=== PATIENT | female | born 1980 | race Caucasian/White ===

== ENCOUNTER 2018-08-01 05:51 | Day surgery (SDC) | payer OTHER ==
[~2018-08-01] VITALS: Ht 167.6 cm; Wt 96.0 kg
[2018-08-01] VITALS (11 sets, daily range): BP systolic 115–145; BP diastolic 74–97; PULSE 88–104; RESP 16–21; Ht 167.6 cm; Wt 96.0 kg
[2018-08-01] MEDS ORDERED: LACTATED RINGER'S 1,000 ML IV SCH (07:00)
[2018-08-01] MEDS ORDERED: BACITRACIN/POLYMYXIN 28.35 GM OINT TOP ONE (07:10)
[2018-08-01] MEDS ORDERED: POLYMYXIN/BACITRACIN 1L IRRIG ONE (07:10)
[2018-08-01] MEDS ORDERED: BUPIVACAINE 0.5% (SDV) 30 ML INJ ONE (07:10)
--- NOTE | 2018-08-01 07:10 | PREAC ---
Date/Time of Note Date/Time of Note DATE: 08/01/18 TIME: 07:09 Anesthesia Eval and Record Evaluation Time Pre-Procedure Interview DATE: 08/01/18 TIME: 07:09 Age 37 Sex female NPO: 8 hrs Preoperative diagnosis Right leg gastrocnemius tightness and metataralgia Planned procedure Right gastrocnemius recession, open vs endoscopic Past Medical History Past Medical History: Includes GI: Obesity Surgery & Anesthesia Issues No known issue Meds Anticoagulation: No Beta Rain within 24 hr: No Reason Beta Rain not given: Pt. not on B-Rain Current Medications Lactated Ringer's 1,000 ml @ 25 mls/hr Q24H IV Last administered on 08/01/18at 07:01; Admin Dose 25 MLS/HR; Start 08/01/18 at 07:00 Meds reviewed: Yes Allergies Coded Allergies: No Known Allergy (Unverified , 08/01/18) Allergies Reviewed: Yes Labs/Studies Labs Reviewed: Reviewed by anesthesiologist test: Negative Pre-procedure Exam Last vitals Vital Signs Date Temp Pulse Resp B/P (MAP) Pulse Ox O2 O2 Flow FiO2 Time Delivery Rate 08/01/18 98.6 88 18 115/74 97 Room Air 07:02 (88) Airway: Adequate mouth opening Mallampati: Mallampati II Teeth: Normal Lung: Normal Heart: Normal ASA Physical Status ASA physical status: 2 Emergency: None Planned Anesthetic General/MAC: ETT, LMA Planned Pain Management Parenteral pain med Pre-operative Attestations Prior to commencing anesthesia and surgery, the patient was re-evaluated, there was verification of: *The patient's identity *The results of appropriate recent lab work and preoperative vital signs *The above evaluation not changing prior to induction *Anesthetic plan, risk benefits, alternative and complications discussed with patient/family; questions answered; patient/family understands, accepts and wishes to proceed. WILLIS GUZMAN MD Aug 01, 2018 07:10
[2018-08-01] MEDS ORDERED: ALPR1TAB2 PO (07:21)
[2018-08-01] MEDS ORDERED: PEPCID AC PO (07:21)
[2018-08-01] MEDS ORDERED: HYDR-3980 PO (07:21)
[2018-08-01] MEDS ORDERED: MEPERIDINE 100 MG INJ ONE (07:28)
[2018-08-01] MEDS ORDERED: CEFAZOLIN 1 GM INJ ONE (07:28)
[2018-08-01] MEDS ORDERED: LIDOCAINE 2% (SDV) 5 ML INJ ONE (07:28)
[2018-08-01] MEDS ORDERED: PROPOFOL 20 ML ONE (07:28)
[2018-08-01] MEDS ORDERED: MIDAZOLAM 1 MG/ML 2 ML INJ ONE (07:44)
--- NOTE | 2018-08-01 08:07 | HPN ---
Date/Time of Note Date/Time of Note DATE: 08/01/18 TIME: 08:07 Interval H&P Admission Note Pt. seen H&P reviewed: No system changes UYEN ROY MD Aug 01, 2018 08:07
[2018-08-01] MEDS ORDERED: KETOROLAC 30 MG INJ IV SCH (08:30)
[2018-08-01] MEDS ORDERED: morphine 2 MG INJ IV PRN (08:30)
[2018-08-01] MEDS ORDERED: METOCLOPRAMIDE 10 MG INJ ONE (08:41)
[2018-08-01] MEDS ORDERED: ONDANSETRON 4 MG INJ ONE (08:41)
[2018-08-01] MEDS ORDERED: ROPIVACAINE 0.5 % 30 ML VIAL ONE (08:49)
[2018-08-01] MEDS ORDERED: EPHEDrine 25 MG/5 ML SYG IV PRN (09:30)
[2018-08-01] MEDS ORDERED: FENTAnyl 50 MCG/ML VIAL IV PRN ×2 (09:30)
[2018-08-01] MEDS ORDERED: METOCLOPRAMIDE 10 MG INJ IV PRN (09:30)
[2018-08-01] MEDS ORDERED: MIDAZOLAM 1 MG/ML 2 ML INJ IV PRN (09:30)
[2018-08-01] MEDS ORDERED: DIPHENHYDRAMINE 50 MG INJ IV PRN (09:30)
[2018-08-01] MEDS ORDERED: OXYCODONE/ACETAMINOPHEN (5/325) TAB PO PRN ×2 (09:30)
[2018-08-01] MEDS ORDERED: hydrALAzine 20 MG INJ IV PRN (09:30)
[2018-08-01] MEDS ORDERED: HYDROmorphONE 1 MG/5 ML IV SYRINGE IV PRN ×3 (09:30)
[2018-08-01] MEDS ORDERED: ONDANSETRON 4 MG INJ IV PRN (09:30)
[2018-08-01] MEDS ORDERED: MEPERIDINE 25 MG INJ IV PRN (09:30)
[2018-08-01] MEDS ORDERED: LABETALOL HCL 20MG INJ IV PRN (09:30)
[2018-08-01] MEDS: FENTAnyl 50 MCG/ML VIAL IV PRN ×2 (10:06→10:12)
--- NOTE | 2018-08-01 10:15 | QN ---
Documentation Job number: [id number] UYEN ROY MD Aug 01, 2018 10:15
--- NOTE | 2018-08-01 11:21 | PAC ---
Date/Time of Note Date/Time of Note DATE: 08/01/18 TIME: 11:21 Post-Anesthesia Notes Post-Anesthesia Note Last documented vital signs Vital Signs Date Temp Pulse Resp B/P (MAP) Pulse Ox O2 O2 Flow FiO2 Time Delivery Rate 08/01/18 97.9 93 16 139/97 94 10:45 (111) 08/01/18 Room Air 10:40 Activity: WNL Respiratory function: WNL Cardiovascular function: WNL Mental status: Baseline Pain reasonably controlled: Yes Hydration appropriate: Yes Nausea/Vomiting absent: Yes WILLIS GUZMAN MD Aug 01, 2018 11:21
--- NOTE | 2018-08-12 06:20 | OPR ---
DATE OF OPERATION: 08/01/2018 PREOPERATIVE DIAGNOSES: 1. Right foot gastrocnemius tightness. 2. Right foot metatarsalgia. POSTOPERATIVE DIAGNOSES: 1. Right foot gastrocnemius tightness. 2. Right foot metatarsalgia. OPERATION SURGERY PERFORMED: Endoscopic gastrocnemius recession. Placement of Short Leg Cast Manipulation of the ankle under anesthesia SURGEON: Frank Barrientos MD NUCLEAR MEDICINE MEDICAL DIRECTOR: None. ANESTHESIA: General with local. ANESTHESIOLOGIST: Dr. Geller. TOURNIQUET TIME: 41 minutes at 250 mmHg. ESTIMATED BLOOD LOSS: Minimal. SPECIMENS: None. IMPLANTS: Platelet-rich plasma, 5% hematocrit. COMPLICATIONS: None. CONDITION UPON COMPLETION OF PROCEDURE: Stable. DISPOSITION: PACU. INDICATIONS: The patient is a 37-year-old female with ongoing pain over her right forefoot with a positive Silfverskiold test, positive for gastrocnemius tightness. Given her ongoing pain, The patient was indicated for surgery. RISK NOTE: Patient was explained the risks and benefits of surgery and the patient's bishop pa[place] language including not limited to infection, bleeding, injury to blood vessels, nerves, ligaments or tendons. Risks of anesthesia, deep vein thrombosis and need for reduce future surgery. Patient acknowledged these risk by signing the surgical consent form. OPERATIVE NOTE: The patient was met in the preoperative holding area, and her operative extremity was marked and confirmed with patient and consent. The patient was brought to the operative theater, placed supine on the operative table, given preoperative antibiotics and preoperative anesthesia. The patient was prepped and draped in the normal sterile fashion. Time-out was taken, and all parties in the room agreed this was the correct patient, extremity and procedure. Tourniquet was brought up to 250 mmHg, and the ankle and foot were brought up into the neutral position to get the surgeon's body to put the gastrocnemius tendon under moderate tension. A 6 mm medial portal was made using a scalpel, 2 cm just below the lowest part of the gastroc muscle belly and slightly anterior to the palpable medial border of the gastroc tendon. The deep crural fascia was then found and punctured using hemostat and advanced to spread to create a potential space. The clear cannula and trocar were then used in the soft tissue plane just posterior to the gastroc tendon but deep to the crural fascia using the guitar pick technique to feel the medial border of the gastroc tendon, together with direct palpation of the calf to direct the trocar tip into the correct plane, avoiding anterior insertion into the soleus muscle belly. A 6 mm lateral portal was made over the tip of the trocar laterally and cut through the skin. The trocar was then removed and the inside of the cannula was cleaned using cotton swabs. The cannula was then adjusted so that the opening slot is faced superior, and then a 4 mm 30-degree arthroscope was inserted and looked directly superior to confirm that the correct plane of incision was observed by the gastroc tendon fibers anteriorly. The sural nerve and saphenous vein were visualized posterior, confirming that the cannula was in the correct position. Once the gastrocnemius tendon was clearly observed and the sural nerve was also observed to be posterior, fat was then removed from the cannula, and the hook was inserted initially from the lateral portal, maintaining moderate tension, and the gastroc tendon was then released from the midline until the most lateral border was released. The camera was then switched to the lateral portal, and the gastroc tendon release was then completed from midline until the medial border was released. At this point, there was excellent dorsiflexion of the ankle, and at approximately 15 degrees of dorsiflexion with the knee in extension. At this point, the wound was then irrigated thoroughly and closed in layers of 3-0 Monocryl followed by a 4-0 Monocryl and Steri- Strips. The medial wound was injected with platelet-rich plasma, 5%, as well as the plantar area where she is having ongoing pain over the second, third and fourth metatarsal heads. The wounds were then dressed with Xeroform triple antibiotic ointment and 4 x 4's soaked in platelet-poor plasma, and then placed into a short leg splint in slight dorsiflexion to keep the gastrocnemius muscle on stretch. At the end of the case, all sponge and needle counts were correct. The patient was brought back to the PACU in stable condition. Dictated By: FRANK WAHL/DIMITRY Conf#: [id number] DID#: [id number]
== END 2018-08-01 11:23 | disposition home or self-care (01) ==
LOC: SDS 05:51
PROVIDERS: ATTEND Orthopaedic Surgery
DX: M77.41 Metatarsalgia, right foot (principal)
CPT/HCPCS: 29999; 82306; J0690; J1170; J1885; J2175; J2250; J2405; J2765; J2795; J3010